=== PATIENT | female | born 1975 | race Caucasian/White ===

== ENCOUNTER 2020-04-19 17:28 | Emergency (ER) | payer OTHER, SELFPAY ==
[2020-04-19 17:44] VITALS: BP 142/80; PULSE 84; RESP 16; TEMP 36.1; O2SAT 96
--- NOTE | 2020-04-19 17:44 | ED.GENADULT ---
HPI - General Adult General Chief complaint: Skin/Abscess/Foreign Body Stated complaint: Rash Time Seen by Provider: 04/19/20 17:52 Source: patient and RN notes reviewed Mode of arrival: ambulatory Limitations: no limitations History of Present Illness HPI narrative: 44-year-old female presents with complaints of red, blister, raised, mild itching diffused rash for the past 1.5 days. Benadryl this morning between 07:00/08:00 with little to no relief. Namita believes she could have eating something with gluten in it. She changed her fabric softener (liquid) to Gain over a month ago otherwise no other new changes in personal hygiene products or laundry detergent. No new foods or medications. No swelling, burning, bleeding, or drainage. Denies fever, chills, headaches, weakness, fatigue, myalgia, facial swelling, or tongue swelling. Denies chest pain or dyspnea. Tolerating po intake well. The patient reports she have not been diagnosed with COVID-19. The patient reports she is not waiting for the results of a COVID-19 lab test. The patient reports she do not have fever, chills, or weakness. The patient reports she do not have a new or worsening cough or shortness of breath. Denies chest pain. The patient reports she do not have any rhinorrhea, congestion, sore throat, loss of taste, nausea, vomiting, abdominal pain, and diarrhea. Denies recent traveling. Denies concerns for COVID-19 or exposures been home with limited outdoor exposure except for essential household needs and return home. At this time, patient is not suspected of having COVID-19. Some parts of this dictation were generated by voice recognition software and may contain typographical and/or grammatical inaccuracies. Related Data Home Medications Medication Instructions Recorded Confirmed Prilosec 04/19/20 Allergies Allergy/AdvReac Type Severity Reaction Status Date / Time sulfamethoxazole Allergy Severe Anaphylactic Unverified 12/19/18 15:45 Shock trimethoprim Allergy Severe Anaphylactic Unverified 12/19/18 15:45 Shock Review of Systems Review of Systems: Narrative: CONSTITUTIONAL: Denies fever, chills, sweats. EYES: Denies visual changes, redness, discharge. ENT: Denies rhinorrhea, congestion, sore throat, otalgia. CARDIOVASCULAR: Denies chest pain, palpitations, edema. RESPIRATORY: Denies dyspnea, wheezing, cough. GASTROINTESTINAL: Denies abdominal pain, nausea, vomiting, diarrhea. GENITOURINARY: Denies dysuria, hematuria, abnormal discharge SKIN: Complaints of red, blister, raised, mild itching diffused rash. Denies drainage. MUSCULOSKELETAL: Denies acute back pain, joint pain, or myalgia. NEUROLOGIC: Denies numbness or focal weakness. PSYCHIATRIC: Denies anxiety or depression. All other systems reviewed & are unremarkable except as noted in HPI and below. [facility] Past Medical History Medical History (Updated 04/19/20 @ 18:27 by CATINA Mcintyre) Celiac disease delivery delivered History of gastroesophageal reflux (GERD) Surgical History Surgical History (Updated 04/19/20 @ 18:27 by CATINA Mcintyre) H/O section X1 History of cholecystectomy History of left knee surgery Family History Family History (Updated 04/19/20 @ 18:28 by CATINA Mcintyre) Father Alive and well Mother Diabetes mellitus Social History Social History (Updated 04/19/20 @ 18:29 by CATINA Mcintyre) Smoking packs per day: 0.5 Smoking cigarettes per day: 10.0 Years smoked: 20 Smoking pack-years: 10.00 Smoking status: Current every day smoker Tobacco type: cigarettes Second hand tobacco smoke exposure: No Alcohol intake: current Substance use: never Living arrangements: with family Additional occupation/education comments: Disable Gender identity (if verbalized by the patient): Female Sexual Orientation (if Verbalized by the Patient): Straight or Heterosexual Comm
== END 2020-04-19 18:16 | disposition home or self-care (01) ==
PROVIDERS: Emergency Provider Nurse Practitioner Family; PCP Registered Nurse
DX: L50.9 Urticaria, unspecified (principal); F17.210 Nicotine dependence, cigarettes, uncomplicated; K21.9 Gastro-esophageal reflux disease without esophagitis; K90.0 Celiac disease
CPT/HCPCS: 99213; G0463

== ENCOUNTER 2021-01-06 17:47 | Emergency (ER) | payer OTHER, SELFPAY ==
--- NOTE | 2021-01-06 17:55 | ED.FEMALEGU ---
HPI - Female Genitourinary General Chief complaint: Urogenital-Female Stated complaint: UTI Time Seen by Provider: 01/06/21 18:04 Source: patient and RN notes reviewed Mode of arrival: ambulatory Limitations: no limitations History of Present Illness HPI Narrative: 45-year-old female presents concern for possible urinary tract infection reports this past week she had left lower abdominal pain that has since resolved. Since Wednesday she has had urinary frequency, urgency, suprapubic pressure. She denies dysuria, hematuria, nausea, vomiting, flank pain, fever. Denies abnormal vaginal discharge or bleeding. MD elicited complaint: UTI Related Data Allergies Allergy/AdvReac Type Severity Reaction Status Date / Time sulfamethoxazole Allergy Severe Anaphylactic Unverified 12/19/18 15:45 Shock trimethoprim Allergy Severe Anaphylactic Unverified 12/19/18 15:45 Shock Review of Systems Review of Systems: Narrative: CONSTITUTIONAL: Denies malaise, chills, sweats, or fever. CARDIOVASCULAR: Denies chest pain, palpitations, or edema. RESPIRATORY: Denies cough or dyspnea. GASTROINTESTINAL: Denies abdominal pain, nausea, vomiting, diarrhea GENITOURINARY: Denies dysuria or hematuria. SKIN: Reports urine frequency, urgency, suprapubic pressure denies rash or itching. MUSCULOSKELETAL: Denies back pain or myalgia. NEUROLOGIC: Denies headache. All systems reviewed & are unremarkable except as noted in HPI and below PMFSH Past Medical History Medical History (Updated 01/06/21 @ 18:13 by Sissy Gary NP) Celiac disease delivery delivered History of gastroesophageal reflux (GERD) Surgical History Surgical History (Updated 04/19/20 @ 18:27 by CATINA Mcintyre) H/O section X1 History of cholecystectomy History of left knee surgery Family History Family History (Updated 04/19/20 @ 18:28 by CATINA Mcintyre) Father Alive and well Mother Diabetes mellitus Social History Social History (Updated 04/19/20 @ 18:29 by CATINA Mcintyre) Smoking packs per day: 0.5 Smoking cigarettes per day: 10.0 Years smoked: 20 Smoking pack-years: 10.00 Smoking status: Current every day smoker Tobacco type: cigarettes Second hand tobacco smoke exposure: No Alcohol intake: current Substance use: never Additional occupation/education comments: Disable Gender identity (if verbalized by the patient): Female Comments At time of signature, agree with nursing past medical, surgical, social and family history. There is no relevant family history pertinent to the presenting complaint Exam Narrative: Exam Narrative: GENERAL: Well-appearing, well-nourished, and in no acute distress. HEAD: Normocephalic. EYES: PERRLA, conjunctivae clear. NECK: Supple. No lymphadenopathy CHEST: Clear to auscultation. No respiratory distress. HEART: Regular rate and rhythm. ABDOMEN: Soft, nontender upon palpation, nondistended, normal active bowel sounds, no palpable or pulsatile masses, no guarding. No CVA tenderness SKIN: Warm, dry, no rash. NEURO: Alert and oriented x3. PSYCH: Normal mood and affect Course Course Emergency Course: Patient is aware of diagnosis, understands and agrees to treatment plan. Anticipatory guidance given. Patient agrees to follow-up as directed and is aware of reasons to seek care at the emergency department. Portions of this record may have been created with voice recognition software Vital Signs Vital signs: Vital Signs Temperature 98.4 F 01/06/21 18:05 Pulse Rate 101 H 01/06/21 18:05 Respiratory Rate 16 01/06/21 18:05 Blood Pressure 160/82 H 01/06/21 18:05 Pulse Oximetry 97 01/06/21 18:05 Temperature 98.4 F 01/06/21 18:05 Pulse Rate 101 H 01/06/21 18:05 Respiratory Rate 16 01/06/21 18:05 Blood Pressure 160/82 H 01/06/21 18:05 Pulse Oximetry 97 01/06/21 18:05 Reviewed. MDM - Female Genitourinary MDM Narrative Medic
[2021-01-06 18:05] VITALS: BP 160/82; PULSE 101; RESP 16; TEMP 36.9; O2SAT 97
== END 2021-01-06 18:20 | disposition home or self-care (01) ==
PROVIDERS: Emergency Provider Nurse Practitioner; PCP Registered Nurse
DX: R35.0 Frequency of micturition (principal); R39.15 Urgency of urination; R10.30 Lower abdominal pain, unspecified; K21.9 Gastro-esophageal reflux disease without esophagitis; K90.0 Celiac disease; F17.210 Nicotine dependence, cigarettes, uncomplicated
CPT/HCPCS: 81003; 87086; 87088; 99213; G0463

== ENCOUNTER 2021-05-08 13:02 | Emergency (ER) | payer OTHER, SELFPAY ==
[2021-05-08 13:11] VITALS: BP 125/84; PULSE 103; RESP 18; TEMP 36.7; O2SAT 98
--- NOTE | 2021-05-08 13:21 | ED.URI ---
HPI - URI/Sore Throat General Chief Complaint: Upper Respiratory Infection Stated Complaint: sore throat History of Present Illness HPI Narrative: This is a 45-year-old female comes in complaining of a sore throat, being hoarse, coughing. Patient denies any nausea vomiting and/or diarrhea. Patient states that she is taking antihistamines and some cough medicine but she does not seem to think that is working patient states that she feels slightly short of breath Related Data Home Medications Medication Instructions Recorded Confirmed Prilosec OTC 05/08/21 Allergies Allergy/AdvReac Type Severity Reaction Status Date / Time sulfamethoxazole Allergy Severe Anaphylactic Unverified 12/19/18 15:45 Shock trimethoprim Allergy Severe Anaphylactic Unverified 12/19/18 15:45 Shock Review of Systems Review of Systems: ent: Nasal secretions, sore throat, coughing, All systems reviewed & are unremarkable except as noted in HPI and below PMFSH Past Medical History Medical History (Updated 05/08/21 @ 13:45 by La London NP) Celiac disease delivery delivered History of gastroesophageal reflux (GERD) Surgical History Surgical History (Updated 04/19/20 @ 18:27 by CATINA Mcintyre) H/O section X1 History of cholecystectomy History of left knee surgery Family History Family History (Updated 04/19/20 @ 18:28 by CATINA Mcintyre) Father Alive and well Mother Diabetes mellitus Social History Social History (Updated 04/19/20 @ 18:29 by CATINA Mcintyre) Smoking packs per day: 0.5 Smoking cigarettes per day: 10.0 Years smoked: 20 Smoking pack-years: 10.00 Smoking status: Current every day smoker Tobacco type: cigarettes Second hand tobacco smoke exposure: No Alcohol intake: current Substance use: never Additional occupation/education comments: Disable Gender identity (if verbalized by the patient): Female Sexual Orientation (if Verbalized by the Patient): Straight or Heterosexual Comments At time as signature, I have reviewed and agree with nursing past medical, social, surgical and family history. Please see nursing chart for further information. There is no relevant family history pertinent to the presenting complaint. Exam Narrative: GENERAL:Well-appearing, and in no acute distress. HEAD:Normocephalic, atraumatic. EYES: PERRLA and EOMI. ENT: Nares clear, Mucous membranes moist. Pharyngeal erythema due to nasal drainage left TM bulging with erythema NECK: Supple. CHEST: Clear to auscultation. No respiratory distress. HEART: Regular rate and rhythm. Normal peripheral pulses. ABDOMEN: Soft, nontender, nondistended, normal active bowel sounds. EXTREMITIES: Normal range of motion. No edema. SKIN: Warm, dry, no rash. NEURO: No focal deficits. Alert and oriented x3. Patient complains of feeling like it is harder for her to breathe when she coughs or goes into a coughing spell Course CIRCULATION CLERK/PA Physician Supervision Pneumonia, Allergic Rhinitis, Asthma/COPD exacerbation, Upper respiratory cough syndrome, Pharyngitis, Sinusitis, Bronchitis, Influenza Vital Signs Vital signs: Vital Signs Temperature 98.0 F 05/08/21 13:11 Pulse Rate 103 H 05/08/21 13:11 Respiratory Rate 18 05/08/21 13:11 Blood Pressure 125/84 05/08/21 13:11 Pulse Oximetry 98 05/08/21 13:11 Temperature 98.0 F 05/08/21 13:11 Pulse Rate 103 H 05/08/21 13:11 Respiratory Rate 18 05/08/21 13:11 Blood Pressure 125/84 05/08/21 13:11 Pulse Oximetry 98 05/08/21 13:11 MDM - URI/Sore Throat Differential Diagnosis Differential diagnosis: Likely upper respiratory infection, croup, otitis media, sinusitis, viral infection, bronchitis, influenza and pharyngitis Lab Data Labs: Strep Screen Presumptive Negative *(Reference Range: Negative)* Discharge Plan Discharge Clinic
== END 2021-05-08 14:20 | disposition home or self-care (01) ==
PROVIDERS: Emergency Provider Nurse Practitioner Family; PCP Registered Nurse
DX: H66.90 Otitis media, unspecified, unspecified ear (principal); J02.9 Acute pharyngitis, unspecified; F17.210 Nicotine dependence, cigarettes, uncomplicated
CPT/HCPCS: 87081; 87880; 99213; G0463

== ENCOUNTER 2024-07-31 19:05 | Emergency (ER) | payer OTHER, SELFPAY ==
[2024-07-31 19:21] VITALS: BP 130/78; PULSE 94; RESP 16; TEMP 36.9; O2SAT 97
--- NOTE | 2024-07-31 19:57 | ED.URI ---
HPI - URI/Sore Throat General Chief Complaint: Upper Respiratory Infection Stated Complaint: Bodyaches/Chills/Sore Throat Time Seen by Provider: 07/31/24 19:57 Source: patient, RN notes reviewed and old records reviewed Mode of arrival: ambulatory Limitations: no limitations History of Present Illness HPI Narrative: Patient presents with complaints of 8-10 days of body aches, congestion. She reports that congestion initially began in her sinuses, and she continues to have some sinus pain and congestion. But then she feels as though it has begun to work its way into her chest. She reports that she has a deep congested cough, cough is productive. She denies any fevers. She does report some chills and sweats. She has been taking [id number] medication for her symptoms with minimal relief. She denies any injury or trauma. She voices no other concerns or complaints today. Related Data Home Medications ?Medication ?Instructions ?Recorded ?Confirmed ?Last Taken ?Type Prilosec OTC 05/08/21 Unknown History Allergies Allergy/AdvReac Type Severity Reaction Status Date / Time sulfamethoxazole Allergy Severe Anaphylactic Unverified 12/19/18 15:45 Shock trimethoprim Allergy Severe Anaphylactic Unverified 12/19/18 15:45 Shock Review of Systems Review of Systems: All systems reviewed & are unremarkable except as noted in HPI and below Constitutional: Constitutional: Reports no additional constitutional complaints ENT: Reports system reviewed and no additional complaints, except as documented, Reports nasal congestion, Reports nasal discharge, Reports sinus pain, Reports sinus pressure and Reports sore throat Cardiovascular: Cardiovascular: Reports no additional cardiovascular complaints Respiratory: Respiratory: Reports no additional respiratory complaints, Reports chest congestion, Reports cough and Reports excessive phlegm production Gastrointestinal: Gastrointestinal: Reports no additional gastrointestinal complaints [facility] Past Medical History Medical History History of gastroesophageal reflux (GERD) delivery delivered Celiac disease Surgical History Surgical History History of left knee surgery History of cholecystectomy H/O section X1 Family History Family History Father Alive and well Mother Diabetes mellitus Social History Social History Smoking packs per day: 0.5 Smoking cigarettes per day: 10.0 Years smoked: 20 Smoking pack-years: 10.00 Smoking status: Current every day smoker Tobacco type: cigarettes Second hand tobacco smoke exposure: No Alcohol intake: current Substance use: never Living arrangements: with family Additional occupation/education comments: Disable Gender identity (if verbalized by the patient): Female Sexual Orientation (if Verbalized by the Patient): Straight or Heterosexual Comments At the time of my signature, I reviewed and agree with the nursing past medical, surgical, social, and family history. There is no relevant family history pertinent to the patient complaint. Exam Const: General: cooperative, no acute distress, alert, awake and tired appearing Orientation/consciousness: oriented to person, oriented to place and oriented to time HENMT: Head: normal to inspection Face/Nose/Sinus: sinus tenderness Mouth: Yes moist mucous membranes Throat: posterior oropharynx abnormal erythema Resp: Effort & Inspection: normal respiratory effort and able to speak in complete sentences Auscultation: clear to auscultation bilaterally, no crackles, no rales, no rhonchi and no wheezes Cardio: Palpation: normal PMI Rate: regular rate Rhythm: regular rhythm Heart sounds: S1 normal heart sound present and S2 normal heart sound present Neuro: General: oriented to person, oriented to place and oriented to time Cranial nerves: Yes CN's II-XII intact bilaterally Psych: Appearance: grossly normal Thought process: Normal thought process present Insight: Good insight present (Psych) Judgement: Good judgement present (Psych) Course Course Level of Care: Express Care Visit Vital Signs Vital signs: Vital Signs Temperature 98.4 F 07/31/24 19:21 Pulse Rate 94 07/31/24 19:21 Respiratory Rate 16 07/31/24 19:21 Blood Pressure 130/78 07/31/24 19:21 Pulse Oximetry 97 07/31/24 19:21 Oxygen Delivery Room Air 07/31/24 19:21 Temperature 98.4 F 07/31/24 19:21 Pulse Rate 94 07/31/24 19:21 Respiratory Rate 16 07/31/24 19:21 Blood Pressure 130/78 07/31/24 19:21 Pulse Oximetry 97 07/31/24 19:21 Oxygen Delivery Room Air 07/31/24 19:21 Reviewed Discharge Plan Discharge Clinical Impression: Sinusitis Patient Disposition: Home, Self-Care Condition: Stable Instructions: Antibiotic Form, Sinusitis (ED) Additional Instructions: Take all medications as prescribed. Follow with primary care provider. Emergency department for new or worse symptoms Patient Language: Lithuanian Prescriptions: New doxycycline hyclate 100 mg capsule 100 mg PO BID Qty: 20 0RF prednisone 50 mg tablet 50 mg PO DAILY Qty: 5 0RF albuterol sulfate [Ventolin HFA] 90 mcg/actuation HFA aerosol inhaler 2 puff inhalation QID PRN (Reason: shortness of breath or wheezing) Qty: 8.5 0RF prednisone 50 mg tablet 50 mg PO DAILY Qty: 5 0RF doxycycline hyclate 100 mg tablet 100 mg PO BID Qty: 20 0RF No Action Prilosec OTC amoxicillin 500 mg capsule 500 mg PO Q12H 10 Days Qty: 20 0RF cetirizine [Zyrtec] 10 mg tablet 10 mg PO DAILY PRN (Reason: allergy symptoms) Qty: 30 0RF albuterol sulfate 90 mcg/actuation HFA aerosol inhaler 2 puff inhalation QID PRN (Reason: shortness of breath or wheezing) Qty: 8.5 0RF Follow-up/Referrals: Iggy,RC Warner [Primary Care Provider] - 2 Weeks Time of Disposition: 20:06
== END 2024-07-31 20:11 | disposition home or self-care (01) ==
PROVIDERS: Emergency Provider Nurse Practitioner Family; PCP Registered Nurse
DX: J32.9 Chronic sinusitis, unspecified (principal); F17.210 Nicotine dependence, cigarettes, uncomplicated; K21.9 Gastro-esophageal reflux disease without esophagitis; K90.0 Celiac disease
CPT/HCPCS: 99213; G0463

== ENCOUNTER 2025-03-16 16:47 | Emergency (ER) | payer OTHER, SELFPAY ==
--- NOTE | ~2025-03-16 | XR_ITS ---
EXAMINATION: XR foot RT min 3V DATE: 03/16/2025 17:36 INDICATION: Right toe pain, erythema and swelling TECHNIQUE: Dorsoplantar, oblique and lateral views of the right foot were obtained. COMPARISON: None. FINDINGS: Bone alignment is normal. No fracture. Minimal to mild polyarticular osteoarthritis at the first meta tarsophalangeal and a few tarsometatarsal and interphalangeal joints. No erosions to suggest inflamma tory arthritis. Moderate-sized plantar calcaneal spur. Soft tissue swelling over the dorsum of the fo refoot. IMPRESSION: 1. 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 No acute osseous abnormality . Reviewed, dictated and finalized at location A. IMPRESSION: 1. 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 No acu te osseous abnormality.
[2025-03-16 17:01] VITALS: BP 147/89; PULSE 100; RESP 16; TEMP 36.9; O2SAT 97
--- NOTE | 2025-03-16 17:07 | ED_ITS ---
HPI - Back Pain/Injury General Chief Complaint: Back Pain/Injury Stated Complaint: R Swollen Foot/Extreme Lower Back Pain Time Seen by Provider: 03/16/25 16:50 Source: patient Mode of arrival: ambulatory Limitations: no limitations History of Present Illness HPI Narrative: Patient is a 49-year-old female who presents with right foot pain and swelling along with with low back pain radiating to left buttock for 3 days. Patient denies any history of sciatica or gout. Patient has been taking Tylenol, ibuprofen and has been is a Flexeril with no relief. Patient denies any urinary symptoms, loss of bowel or bladder, numbness, tingling or weakness to extremities. Patient appears very uncomfortable in states she is not even able to wipe herself due to pain. States even the blanket touching her foot is extremely painful. Patient has no history of diabetes. Related Data Home Medications ?Medication ?Instructions ?Recorded ?Confirmed ?Last Taken ?Type Prilosec OTC 05/08/21 Unknown History Allergies Allergy/AdvReac Type Severity Reaction Status Date / Time sulfamethoxazole Allergy Severe Anaphylactic Verified 03/16/25 18:34 Shock trimethoprim Allergy Severe Anaphylactic Verified 03/16/25 18:34 Shock Review of Systems Review of Systems: All systems reviewed & are unremarkable except as noted in HPI and below Constitutional: Constitutional: Denies body ache(s), Denies chills, Denies fatigue, Denies fever(s), Denies headache(s), Denies malaise and Denies weakness Eyes: Eyes: Denies blurry vision, Denies irritation and Denies loss of vision ENT: Denies otalgia, Denies headache(s), Denies nasal discharge, Denies sinus pain and Denies sore throat Cardiovascular: Cardiovascular: Denies chest pain, Denies irregular heart rhythm and Denies dyspnea Respiratory: Respiratory: Denies dyspnea Gastrointestinal: Gastrointestinal: Denies abdominal pain, Denies melena, Denies hematochezia, Denies diarrhea, Denies nausea and Denies vomiting Musculoskeletal: Musculoskeletal: Reports back pain, Denies myalgias, Reports arthralgias and Reports joint swelling Integumentary/Breasts: Skin/Breast: Denies pruritus and Denies rash Neurologic: Denies headache(s), Denies loss of vision and Denies weakness Psychiatric: Psychiatric: Reports no additional psychiatric complaints Endocrine: Endocrine: Denies fatigue [facility] Past Medical History Medical History History of gastroesophageal reflux (GERD) delivery delivered Celiac disease Surgical History Surgical History History of left knee surgery History of cholecystectomy H/O section X1 Family History Family History Father Alive and well Mother Diabetes mellitus Social History Social History Smoking packs per day: 0.5 Smoking cigarettes per day: 10.0 Years smoked: 20 Smoking pack-years: 10.00 Smoking status: Current every day smoker Tobacco type: cigarettes Second hand tobacco smoke exposure: No Alcohol intake: current Substance use: never Living arrangements: with family Additional occupation/education comments: Disable Gender identity (if verbalized by the patient): Female Sexual Orientation (if Verbalized by the Patient): Straight or Heterosexual Comments At time of signature, agree with nursing past medical, surgical, social and family history. There is no relevant family history pertinent to the presenting complaint. Exam Const: General: cooperative, uncomfortable, well nourished and obese Nutritional Appearance: well nourished Orientation/consciousness: patient oriented x3 Limitations: no limitations HENMT: Head: normal to inspection, normocephalic and atraumatic Ears: hearing grossly normal bilaterally and external ears normal Face/Nose/Sinus: Normal external nose present, normal facial exam and face symmetric Face and sinus: normal facial exam and face symmetric Mouth: Yes lip normal Eyes: General: appearance normal, both eyes and all related structures Alignment and Position: alignment normal and position normal Periorbital: periorbital findings normal Eyelids: eyelids normal Pupils: Equal, round and reactive pupils present EOM: EOMs intact bilaterally Neck: Neck: normal visual inspection, full ROM and supple Chest: Chest palpation & inspection: normal inspection of the chest Resp: Effort & Inspection: normal respiratory effort and able to speak in complete sentences Auscultation: clear to auscultation bilaterally Cardio: Rate: regular rate Rhythm: regular rhythm Heart sounds: S1 normal heart sound present and S2 normal heart sound present GI: Inspection: normal to inspection Back/Spine/Pelvis: Thoracic/Lumbar Spine: pain with thoraco-lumbar ROM, paraspinal muscle tenderness on the left in the mid lumbar and in the lower lumbar, No thoracic spinal tenderness and No lumbar spinal tenderness Skin: General skin exam: normal color and no rashes or lesions noted Neuro: General: patient oriented x3 and moves all extremities Cranial nerves: Yes Equal, round and reactive pupils present Speech: normal speech Gait exam (Neuro): Normal gait present Extrem: General: normal to inspection, full ROM and no edema Right lower extremity: ankle Details: normal to inspection; no tenderness and achilles tendon exam normal and foot Details: normal capillary refill, tenderness Location: of the great toe Location: at the MTP joint, abnormal ROM of toe Details: pain with active ROM Location: of the great toe, warmth (and eythema) Location: of the great toe Location: at the MTP joint and vascular exam Details: dorsalis pedis pulse present and normal capillary refill Psych: Appearance: grossly normal and well kempt Mental Status: mental status grossly normal Speech and movement: Normal speech and movement present Affect: normal affect Attitude: cooperative Thought process: Normal thought process present Course Course Emergency Course: Patient being transferred to [facility] for further workup and evaluation including labs, possible imaging and pain management Portions of this record may have been created with voice recognition software Level of Care: Express Care Visit Vital Signs Vital signs: Vital Signs Temperature 36.9 C 03/16/25 17:01 Pulse Rate 100 03/16/25 17:01 Respiratory Rate 16 03/16/25 17:01 Blood Pressure 147/89 H 03/16/25 17:01 Pulse Oximetry 97 03/16/25 17:01 Temperature 36.9 C 03/16/25 17:01 Pulse Rate 100 03/16/25 17:01 Respiratory Rate 16 03/16/25 17:01 Blood Pressure 147/89 H 03/16/25 17:01 Pulse Oximetry 97 03/16/25 17:01 Reviewed Transfer Transfered to: [place] Transportation: Other (Private auto) Transfer rationale: Patient being transferred to [facility] for further workup and evaluation including labs, possible imaging and pain management Accepting physician: Yessenia TATUM MDM - Back Pain/Injury MDM Narrative Medical decision making narrative: Patient being transferred to [facility] for further workup and evaluation including labs, possible imaging and pain management Differential Diagnosis Differential diagnosis: Likely lumbar radiculopathy, sciatica, strain of lumbar region and other (Gout, arthritis, cellulitis) Medical Records Attestation: I reviewed the patient's medical records. Discharge Plan Discharge Clinical Impression: Acute pain of right foot Sciatica Qualifiers: Laterality: left Qualified Code(s): M54.32 - Sciatica, left side Patient Disposition: Acute Care Hospital Condition: Stable Patient Language: Armenian Prescriptions: No Action Prilosec OTC cetirizine [Zyrtec] 10 mg tablet 10 mg PO DAILY PRN (Reason: allergy symptoms) Qty: 30 0RF Follow-up/Referrals: PHYSICIAN,GROUP LEADER SEMICONDUCTOR TESTING [Primary Care Provider] -
== END 2025-03-16 18:16 | disposition short-term general hospital (02) ==
LOC: EXPCOLL 16:50
PROVIDERS: Emergency Provider Nurse Practitioner Family
DX: M79.671 Pain in right foot (principal); M54.32 Sciatica, left side; F17.210 Nicotine dependence, cigarettes, uncomplicated; K90.0 Celiac disease; K21.9 Gastro-esophageal reflux disease without esophagitis
CPT/HCPCS: 73630; 99213; G0463

== ENCOUNTER 2025-03-16 18:33 | Emergency (ER) | payer OTHER, SELFPAY ==
--- NOTE | ~2025-03-16 | CT_ITS ---
EXAMINATION: CT lumbar spine wo con DATE: 03/16/2025 19:21 INDICATION: Bilateral low back pain. Right foot numbness. TECHNIQUE: Computed tomography (CT) of the lumbar spine was performed without intravenous contrast. A utomated exposure control and iterative reconstruction technique were employed. The dose-length produ ct was 1300.23 mGy-cm. COMPARISON: MRI dated 01/11/2008 FINDINGS: 15 degrees lumbar dextroscoliosis. Chronic 2 mm retrolisthesis L1 on L2. Chronic mild likely physiolo gic anterior wedging at T11 and T12. Remaining vertebral body heights are normal. No fracture. Modera te disc height loss at T9-T10 and with vacuum phenomena at T11-T12 and T12-L1. Mild disc height loss at T10-T11, L4-L5 and with left-sided predominance at L1-L2 through L3-L4. No central canal stenosis. Moderate bilateral neural foraminal stenosis at L3-L4, L4-L5 and L5-S1 as well as in the visualized lower thoracic spine with mild neural foraminal stenosis bilaterally at L1-L2 and L2-L3. Mild neural foraminal stenosis bilaterally at T10-T11, L1-L2 and on the left at L2-L3 and L3-L4. Cholecystectomy clips the gallbladder fossa. Paravertebral soft tissues are unremarkable. Moderate bilateral sacroili ac osteoarthritis. IMPRESSION: 1. 15 degrees lumbar scoliosis with mild lumbar and moderate lower thoracic spondylosis. No acute oss eous abnormality. Reviewed, dictated and finalized at location A. IMPRESSION: 1. 15 degrees lumbar scoliosis with mild lumbar and moderate lower thoracic spo ndylosis. No acute osseous abnormality.
--- OUTSIDE RECORDS SUMMARY | 2025-03-16 18:35 | XMS_ITS | Clinical Summary ---
Author Organization [facility] [employer] Address [address] [place] [address] Care Team Providers Care Flagsetter Name Role Phone Timmy Parkinson CAR PICK UP DRIVER-MOTION PICTURE SET WORKER Primary Care Pro vider Source Comments [facility] [employer],non-owned Affiliates and Associated Physician Practices is amultiple site organization consisting of ambulatory clinics and hospital sitesin [place], [place], [place] and [place]. This disclosure is being madepursuant to the Care Everywhere program and may not contain all information available regarding this patient. Last updated 18.[facility] [employer] Allergies Active Allergy Reactions Criticality Noted Date Comments Sulfamethoxazole W-Trimethoprim Anaphylaxis High Medications * Be aware that medications may not be up to date on this document. Alwaysverify current medications with the patient. omeprazole EC (PRILOSEC OTC) 20 MG tablet Take 20 mg by mouth DAILY. 07/13/2017 Active hydrocortisone (HYTONE) 2.5 % cream SUSAN TO ITCHY SPOTS ON FACE BID FOR NO MORE THAN 2 WEEKS Q MONTH 1 03/31/2018 Active betamethasone dipropionate augmented (DIPROLENE AF) 0.05 % creamIndications:D ermatitis herpetiformis Apply to itchy bumps on arms twice daily as needed. 50 g 3 05/25/2018 Active desoximetasone (TOPICORT) 0.25 % ointment Apply to rash twice daily as needed. 30 days supply. 60 g 3 06/02/2018 Active triamcinolone acetonide (KENALOG) 0.1 % creamIndications:D ermatitis herpetiformis Apply to itchy bumps on arms twice daily as needed. 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 Family History Medical History Relation Name Comments Eczema Father Renal Disease Mother CVA Neg Hx Cancer - Breast Neg Hx Cancer - Other Neg Hx Cancer - Skin, Melanoma Neg Hx Cancer - Skin, Non Melanoma Neg Hx Hemophilia Neg Hx Psoriasis Neg Hx Relation Name Status Comments Father Mother Social History Tobacco Use Types Packs/Day Years Used Date Smoking Tobacco: Every Day Smokeless Tobacco: Never Alcohol Use Standard Drinks/Week Comments Yes 0 (1 standard drink = 0.6 oz pur e alcohol) Comments Unknown Sex and Gender Information Value Date Recorded Sex Assigned at Not on file Legal 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 Gender Identity Not on file Sexual Orientation Not on file Plan of Treatment Health Maintenance Due Date Last Done Comments COLOGUARD (AGES 45-75) - COL ON CA SCREENING 1974 COLON MONITORING 1974 COLONOSCOPY - COLON CA SCREENING 1974 CT COLONOGRAPHY - COLON CA SCREENING 1974 Colorectal Cancer Screening 1974 FIT - COLON CA SCREENING 1974 FLEX SIG - COLON CA SCREENING 1974 LIPID TESTING 1974 MAMMOGRAM 1974 HIV SCREENING 1989 HEPATITIS C SCREENING 05/13/1992 DTAP/TDAP/TD VACCINES (1 - Tdap) 1993 HEPATITIS B VACCINE (1 of 3 - 19+ 3-dose series) 1993 COVID-19 VACCINE (1 - 2023-2 5 season) 2024 PNEUMOCOCCAL VACCINE 50+ (1 of 1 - PCV) 2024 ZOSTER VACCINE (1 of 2) 2024 DEPRESSION SCREENING 08/23/2024 INFLUENZA VACCINE (#1) 2025 HIB VACCINE Aged Out No longer eligi ble based on patient's age to complete this topic HPV VACCINE Aged Out No longer eligi ble based on patient's age to complete this topic MENINGOCOCCAL (Group B) VACC INE SHARED DECISION-MAKING Aged Out No longer eligibl e based on patient's age to complete this topic MENINGOCOCCAL GROUPS A/C/Y/W VACCINE Aged Out No longer eligible b ased on patient's age to complete this topic Insurance [facility] Care Teams Flagsetter Relationship Specialty Start Date End Date Timmy Parkinson APRN-GREG [address] [place] [phone] PCP - General 07/13/17
--- OUTSIDE RECORDS SUMMARY | 2025-03-16 18:35 | XMS_ITS | Encounter Summary ---
Author Organization [facility] Address [address] [place] [address] Care Team Providers Care Drum Attendant Name Role Phone Timmy Parkinson INSTALLER-CLOTH BOOKER Primary Care Pro vider Reason for Visit * Reason Onset Date Comments Refill Request 02/15/2019 Encounter Details Date Type Department Care Team (Late st Contact Info) Description 02/15/2019 Refill [facility] General Dermatology [address] [place] [id number] John Swenson MD [address] [place] [phone] Refill Request Social History Tobacco Use Types Packs/Day Years Used Date Smoking Tobacco: Every Day Smokeless Tobacco: Never Alcohol Use Standard Drinks/Week Comments Yes 0 (1 standard drink = 0.6 oz pur e alcohol) Comments Unknown Sex and Gender Information Value Date Recorded Sex Assigned at Not on file Legal 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 Her armsare breaking out with blisters again. Also would if steriod pills help her? Please call pt to advise/discuss. Ines Chacon Senior Patient Ultrasound Sonographer Department of Dermatology, Mohs Surgery and Cutaneous Oncology [facility] Dermatology [facility] documented in this encounter Plan of Treatment Not on file documented as of this encounter Visit Diagnoses Diagnosis Dermatitis herpetiformis documented in this encounter Care Teams Drum Attendant Relationship Specialty Start Date End Date Timmy Parkinson APRN-GREG [address] [place] [phone] PCP - General 07/13/17 documented as of this encounter
[2025-03-16 18:42] VITALS: BP 181/155; PULSE 109; RESP 18; TEMP 37; O2SAT 97
--- NOTE | 2025-03-16 18:49 | ED_ITS ---
HPI - Back Pain/Injury General Chief Complaint: Back Pain/Injury <Keiry Jeong APRN - Last Filed: 03/16/25 18:51> Stated Complaint: Back pain <Keiry Jeong APRN - Last Filed: 03/16/25 18:51> Time Seen by Provider: 03/16/25 18:45 <Keiry Jeong APRN - Last Filed: 03/16/25 18:51> Focused HPI: Patient is a 49-year-old female who presents to the ER with bilateral lower back pain that radiates down legs, intermittent right foot pain, and intermittent right foot numbness/tingling. She reports her symptoms started 4 days ago and have progressively gotten worse. Patient denies any urinary symptoms. She endorses a history cholecystectomy, C-sections, left knee replacement, and celiac disease. Patient denies any calf pain, recent fevers, or headache. GENERAL: ill-appearing, obese, and in acute distress d/t pain. HEAD: Normocephalic, atraumatic. CHEST: Clear to auscultation. ?No respiratory distress. HEART: Tachycardia, regular rate NEURO: ?Alert and oriented x3. Cranial nerves intact. Patient screened in triage and initial orders placed.? ?Additional care and disposition to be based upon?diagnostic testing and treatment. <Keiry Jeong APRN - Last Filed: 03/16/25 18:51> Source: patient and family <Esther Mesa MD - Last Filed: 03/18/25 08:09> Mode of arrival: ambulatory <Esther Mesa MD - Last Filed: 03/18/25 08:09> Limitations: no limitations <Esther Mesa MD - Last Filed: 03/18/25 08:09> History of Present Illness HPI Narrative: Agree with the above with the following additions/corrections: Patient states that her back pain radiates into her left buttock and proximal upper leg but not into the thigh or along lateral aspect and does not continue to the knee or foot. No trauma/falls. Her symptoms started 03/12. Symptoms have seemed intermittent. She has also been having right foot pain and notes hyperalgesia with touch. She has been trying Flexeril couple 1 tablet of baclofen, and 600 mg of ibuprofen in addition to massage /muscle rub with heat. No history of MRSA. Allergic to Bactrim. Denies any urinary symptoms. No history of diabetes mellitus. Does not drink alcohol. No incontinence of bowel or bladder. Denies paresthesias except parts of the right foot which is red. No saddle anesthesia. Denies any IV drug use. Not on anticoagulation. No fevers or chills. No syncope or abdominal pain. Confirms she has a PCP Iggy. <Esther Mesa MD - Last Filed: 03/18/25 08:09> Related Data Home Medications: Home Medications ?Medication ?Instructions ?Recorded ?Confirmed ?Last Taken ?Type Prilosec OTC 05/08/21 Unknown History <Keiry Jeong APRN - Last Filed: 03/16/25 18:51> Allergies/Adverse Reactions: Allergies Allergy/AdvReac Type Severity Reaction Status Date / Time sulfamethoxazole Allergy Severe Anaphylactic Verified 03/16/25 18:46 Shock trimethoprim Allergy Severe Anaphylactic Verified 03/16/25 18:46 Shock <Keiry Jeong APRN - Last Filed: 03/16/25 18:51> PMFSH Past Medical History Medical History: Medical History Obesity, morbid, BMI 50 or higher History of gastroesophageal reflux (GERD) delivery delivered Celiac disease <Keiry Jeong APRN - Last Filed: 03/16/25 18:51> Surgical History Surgical History: Surgical History History of left knee surgery History of cholecystectomy H/O section X1 <Keiry Jeong APRN - Last Filed: 03/16/25 18:51> Family History Family History: Family History Father Alive and well Mother Diabetes mellitus <Keiry Jeong APRN - Last Filed: 03/16/25 18:51> Social History Social History: Social History Smoking packs per day: 0.5 Smoking cigarettes per day: 10.0 Years smoked: 20 Smoking pack-years: 10.00 Smoking status: Current every day smoker Tobacco type: cigarettes Second hand tobacco smoke exposure: No Alcohol intake: current Substance use: never Living arrangements: with family Additional occupation/education comments: Disable Gender identity (if verbalized by the patient): Female Sexual Orientation (if Verbalized by the Patient): Straight or Heterosexual <Keiry Jeong APRN - Last Filed: 03/16/25 18:51> Exam 2 Narrative: GENERAL: Well-appearing, well-nourished, and in no acute distress. HEAD: Normocephalic, atraumatic. EYES: Non injected, non icteric. Cholesterol deposit left eyelid. ENT: Nares clear, no rhinorrhea or epistaxis. Gross auditory acuity intact. NECK: Supple. No meningismus. CHEST: Speaking in full sentences. No respiratory distress. HEART: Regular rate and rhythm. . ABDOMEN: Morbidly obese but Soft, nondistended. Not peritoneal EXTREMITIES: Normal range of motion. No lower extremity edema. BACK: Patient able to perform side bends as well as flexion extension the lumbar spine. SKIN: Warm, dry. Right foot with erythema over the dorsum that blanches with touch and is warm though without induration. No rash/ecchymosis/vesicles overlying back or left buttock in area of pain. NEURO: No focal deficits. Alert and oriented. Answering questions. Following commands. Normal speech without aphasia or dysarthria. 5/5 strength with bilateral ankle dorsiflexion plantar flexion, bilateral knee flexion extension. Sensation intact to gross touch throughout. PSYCH: Normal mood and affect. <Esther Mesa MD - Last Filed: 03/18/25 08:09> Course Vital Signs Vital signs: Vital Signs Temperature 98.6 F 03/16/25 18:42 Pulse Rate 109 H 03/16/25 18:42 Respiratory Rate 18 03/16/25 18:42 Blood Pressure 181/155 H 03/16/25 18:42 Pulse Oximetry 97 03/16/25 18:42 Oxygen Delivery Room Air 03/16/25 18:42 Temperature 98.2 F 03/16/25 21:14 Pulse Rate 86 03/17/25 01:20 Respiratory Rate 18 03/17/25 01:20 Blood Pressure 147/88 H 03/17/25 01:20 Pulse Oximetry 97 03/17/25 01:20 Oxygen Delivery Room Air 03/16/25 18:42 <Keiry Jeong APRN - Last Filed: 03/16/25 18:51> Vital Signs Temperature 98.6 F 03/16/25 18:42 Pulse Rate 109 H 03/16/25 18:42 Respiratory Rate 18 03/16/25 18:42 Blood Pressure 181/155 H 03/16/25 18:42 Pulse Oximetry 97 03/16/25 18:42 Oxygen Delivery Room Air 03/16/25 18:42 Temperature 98.2 F 03/16/25 21:14 Pulse Rate 86 03/17/25 01:20 Respiratory Rate 18 03/17/25 01:20 Blood Pressure 147/88 H 03/17/25 01:20 Pulse Oximetry 97 03/17/25 01:20 Oxygen Delivery Room Air 03/16/25 18:42 <Esther Mesa MD - Last Filed: 03/18/25 08:09> MDM - Back Pain/Injury MDM Narrative Medical decision making narrative: Patient presents with back pain that radiates into her left buttock. Does not radiate into her thigh or to the knee or left ankle. She also has an erythematous and painful right foot. In the emergency department she is afebrile with vital signs notable for hypertension tachycardia. Back has no deformities, or signs of trauma. Curvature is within normal limits. Patient demonstrates flexion, extension, and side-bends of the lumbar spine. Sensation to the lower extremities is intact. Dorsi/plantar flexion is normal bilaterally. They do not have any other red flags for fracture, malignancy, infection (e.g. spinal epidural abscess), or aortic/vascular: Age, no trauma, no history of cancer, no fever, IV drug use, HIV, abdominal pain, syncope, or urinary symptoms. Urinalysis abnormal but patient is without symptoms so will defer treating explicitly (although will be receiving antibiotics for cellulitis as below which may provide coverage if there is growth on the culture in process). Mild leukocytosis Ketorolac was ordered from triage as was CT imaging. Patient's distribution of pain is not entirely consistent with sciatica or meralgia paresthetica but otherwise the left sided back pain seems benign. Right foot appears consistent with cellulitis. Discussed that there appears to be 2 processes going on and the role of aggressive multimodal pain management for the back pain as well as treating the infection for the right foot pain. Medications given in the ED and combination of Rx provided for both. Otherwise stable for DC. Area of infection to be outlined with a skin pen by RN. <Esther Mesa MD - Last Filed: 03/18/25 08:09> Differential Diagnosis Differential diagnosis: Likely lumbar radiculopathy, sciatica, strain of lumbar region and other (considered zoster) <Esther Mesa MD - Last Filed: 03/18/25 08:09> Lab Data Attestation: I reviewed the patient's lab results. <Esther Mesa MD - Last Filed: 03/18/25 08:09> Result diagrams: 03/16/25 19:45 03/16/25 19:45 <Keiry Jeong APRN - Last Filed: 03/16/25 18:51> Labs: Lab Results 03/16/25 03/16/25 Range/Units 19:45 23:03 WBC 13.9 H (4.5-10.0) K/mm3 RBC 5.34 (4.2-5.4) M/mm3 Hgb 14.4 (12.0-15.0) g/dL Hct 45.4 (37.0-47.0) % MCV 85.0 (80-100) fl MCH 27.0 (26-34) pg MCHC 31.7 L (32-36) g/dl RDW 16.0 H (11.5-14.5) % Plt Count 282 (150-375) k/mm3 MPV 10.2 (7.4-10.4) fl Immature Gran % (Auto) 1.2 H (0-0.5) % Neut % (Auto) 66.6 (45.5-73.1) % Lymph % (Auto) 23.0 (18.3-44.2) % [place] % (Auto) 6.6 (2.6-8.5) % Eos % (Auto) 1.6 (0-4.4) % Baso % (Auto) 1.0 (0.2-1.2) % Lymph # (Auto) 3.19 (0.9-3.2) K/mm3 [place] # (Auto) 0.9 H (0.1-0.6) K/mm3 Eos # (Auto) 0.2 (0-0.3) K/mm3 Baso # (Auto) 0.1 (0.0-0.1) K/mm3 Abs Immat Gran (auto) 0.16 H (0.00-0.031) K/mm3 Absolute Neuts (auto) 9.2 H (1.3-6.7) K/mm3 Absolute Nucleated RBC 0.000 (0.0-0.012) K/mm3 Nucleated RBC % 0.0 (0.0-0.2) % Sodium 139 (137-145) mmol/L Potassium 4.1 (3.4-5.0) mmol/L Chloride 106 (98-107) mmol/L Carbon Dioxide 24 (22-30) mmol/L Anion Gap 9 (4-12) mmol/L BUN 13 (7-17) mg/dL Creatinine 0.87 (0.7-1.0) mg/dL Estim Creat Clear Calc 88 ml/min Estimated GFR > 60 (59 - ) Glucose 104 (65-110) mg/dL Calcium 9.1 (8.4-10.2) mg/dL Total Bilirubin 0.6 (0.2-1.3) mg/dL AST 41 H (14-36) U/L ALT 26 (6-35) U/L Alkaline Phosphatase 116 (38-126) U/L Total Protein 8.0 (6.3-8.2) g/dL Albumin 4.2 (3.5-5.1) g/dL Urine Color Yellow (Yellow) Urine Appearance Cloudy H (Clear) Urine pH 5.5 (5.0-9.0) Ur Specific [place] 1.018 (1.001-1.035) Urine Protein Negative (Negative) mg/dL Urine Glucose (UA) Negative (Negative) mg/dL Urine Ketones Negative (Negative) mg/dL Ur Blood (Man) 2+ H (Negative) Urine Nitrate Negative (Negative) Urine Bilirubin Negative (Negative) Urine Urobilinogen 0.2 (<2.0) mg/dL Add Ur Microanalysis Reviewed Leukocyte Esterase Rfl 1+ H (Negative) CELSO/UL Urine RBC 6-10 H (0-2) /hpf Urine WBC 6-10 H (0-3) /hpf Ur Squamous Epith Cells Few (Few) /hpf Urine Bacteria Rare /hpf Urine Casts 0-2 Urine Yeast (Budding) Present H (None) /hpf <Keiry OlivaMauricio Jeong, RESPIRATORY CARE INSTRUCTOR - Last Filed: 03/16/25 18:51> Lab Results 03/16/25 03/16/25 Range/Units 19:45 23:03 WBC 13.9 H (4.5-10.0) K/mm3 RBC 5.34 (4.2-5.4) M/mm3 Hgb 14.4 (12.0-15.0) g/dL Hct 45.4 (37.0-47.0) % MCV 85.0 (80-100) fl MCH 27.0 (26-34) pg MCHC 31.7 L (32-36) g/dl RDW 16.0 H (11.5-14.5) % Plt Count 282 (150-375) k/mm3 MPV 10.2 (7.4-10.4) fl Immature Gran % (Auto) 1.2 H (0-0.5) % Neut % (Auto) 66.6 (45.5-73.1) % Lymph % (Auto) 23.0 (18.3-44.2) % [place]eman % (Auto) 6.6 (2.6-8.5) % Eos % (Auto) 1.6 (0-4.4) % Baso % (Auto) 1.0 (0.2-1.2) % Lymph # (Auto) 3.19 (0.9-3.2) K/mm3 [place] # (Auto) 0.9 H (0.1-0.6) K/mm3 Eos # (Auto) 0.2 (0-0.3) K/mm3 Baso # (Auto) 0.1 (0.0-0.1) K/mm3 Abs Immat Gran (auto) 0.16 H (0.00-0.031) K/mm3 Absolute Neuts (auto) 9.2 H (1.3-6.7) K/mm3 Absolute Nucleated RBC 0.000 (0.0-0.012) K/mm3 Nucleated RBC % 0.0 (0.0-0.2) % Sodium 139 (137-145) mmol/L Potassium 4.1 (3.4-5.0) mmol/L Chloride 106 (98-107) mmol/L Carbon Dioxide 24 (22-30) mmol/L Anion Gap 9 (4-12) mmol/L BUN 13 (7-17) mg/dL Creatinine 0.87 (0.7-1.0) mg/dL Estim Creat Clear Calc 88 ml/min Estimated GFR > 60 (59 - ) Glucose 104 (65-110) mg/dL Calcium 9.1 (8.4-10.2) mg/dL Total Bilirubin 0.6 (0.2-1.3) mg/dL AST 41 H (14-36) U/L ALT 26 (6-35) U/L Alkaline Phosphatase 116 (38-126) U/L Total Protein 8.0 (6.3-8.2) g/dL Albumin 4.2 (3.5-5.1) g/dL Urine Color Yellow (Yellow) Urine Appearance Cloudy H (Clear) Urine pH 5.5 (5.0-9.0) Ur Specific [place] 1.018 (1.001-1.035) Urine Protein Negative (Negative) mg/dL Urine Glucose (UA) Negative (Negative) mg/dL Urine Ketones Negative (Negative) mg/dL Ur Blood (Man) 2+ H (Negative) Urine Nitrate Negative (Negative) Urine Bilirubin Negative (Negative) Urine Urobilinogen 0.2 (<2.0) mg/dL Add Ur Microanalysis Reviewed Leukocyte Esterase Rfl 1+ H (Negative) CELSO/UL Urine RBC 6-10 H (0-2) /hpf Urine WBC 6-10 H (0-3) /hpf Ur Squamous Epith Cells Few (Few) /hpf Urine Bacteria Rare /hpf Urine Casts 0-2 Urine Yeast (Budding) Present H (None) /hpf <Esther Mesa MD - Last Filed: 03/18/25 08:09> Imaging Data Radiologist's impression: IMPRESSION: 1. 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 No acute osseous abnormality. IMPRESSION: 1. 15 degrees lumbar scoliosis with mild lumbar and moderate lower thoracic spondylosis. No acute osseous abnormality. <Esther Mesa MD - Last Filed: 03/18/25 08:09> Discharge Plan Discharge Clinical Impression: Back pain, Abnormal urinalysis, Lumbar scoliosis, Spondylosis of thoracic spine, Lumbar spondylosis, Cellulitis of foot, right <Keiry Jeong APRN - Last Filed: 03/16/25 18:51> Patient Disposition: Home <Keiry Jeong APRN - Last Filed: 03/16/25 18:51> Condition: Stable <Keiry Jeong APRN - Last Filed: 03/16/25 18:51> Instructions: Antibiotic Form, Cellulitis (ED), Back Pain (ED), Lower Back Exercises (ED) <Keiry Jeong APRN - Last Filed: 03/16/25 18:51> Additional Instructions: As we discussed, the goal of multimodal pain regimen is to reduce your pain to a more tolerable levels to allow you to balance some rest with maintaining staying active and performing stretching/strengthening exercises. Acetaminophen/Tylenol (maximum 4000 mg per day) is safe to take with NSAIDs (ibuprofen/Motrin) for pain relief. In addition there are topical approaches and a muscle relaxer, the latter can help at night. Follow up with your PCP as, if not improving in 5-7 days may require alternative imaging/pain strategies, physical therapy, etc. For the skin infection on a cellulitis take the entire course of antibiotic. You received your 1st dose in the emergency department. Return to the emergency department with any new or worsening symptoms. Return to the ER if you have increased pain in your back, you develop lower extremity weakness/numbness/paralysis, you have numbness or tingling in your private parts, or you are unable to control your ability to urinate/stool. <Keiry Jeong APRN - Last Filed: 03/16/25 18:51> Patient Language: Guinean <Keiry Jeong APRN - Last Filed: 03/16/25 18:51> Prescriptions: New methocarbamol 750 mg tablet 1,500 mg PO HS Qty: 14 0RF acetaminophen 500 mg capsule 1,000 mg PO Q6H PRN (Reason: pain) Qty: 30 0RF lidocaine 4 % adhesive patch,medicated 1 patch topical DAILY PRN (Reason: pain) Qty: 10 0RF ibuprofen 600 mg tablet 600 mg PO TID PRN (Reason: pain) Qty: 30 0RF cephalexin 500 mg tablet 500 mg PO Q8H 5 Days Qty: 15 0RF No Action Prilosec OTC cetirizine [Zyrtec] 10 mg tablet 10 mg PO DAILY PRN (Reason: allergy symptoms) Qty: 30 0RF <Keiry Jeong APRN - Last Filed: 03/16/25 18:51> Follow-up/Referrals: PHYSICIAN,AIRCRAFT DETAIL DRAFTSPERSON [Primary Care Provider] - <Keiry Jeong APRN - Last Filed: 03/16/25 18:51> Stand Alone Forms: Work/School Release IP <Keiry Jeong APRN - Last Filed: 03/16/25 18:51> Time of Disposition: 00:59 <Keiry Jeong APRN - Last Filed: 03/16/25 18:51> 00:59 <Esther Mesa MD - Last Filed: 03/18/25 08:09>
[2025-03-16 19:59] LABS: Hematocrit 45.4 % (37.0-47.0); Hemoglobin 14.4 g/dL (12.0-15.0); Immature Granulocyte Percent A 1.2 % (0-0.5); Lymphocytes Absolute Auto 3.19 K/mm3 (0.9-3.2); Mean Corpuscular HGB Conc 31.7 g/dl (32-36); Mean Corpuscular Hemoglobin 27.0 pg (26-34); Mean Corpuscular Volume 85.0 fl (80-100); Nucleated Red Blood Cells Absolute Auto 0.000 K/mm3 (0.0-0.012); Nucleated Red Blood Cells Perc 0.0 % (0.0-0.2); Platelet Count Result 282 k/mm3 (150-375); Red Blood Count 5.34 M/mm3 (4.2-5.4); White Blood Count 13.9 K/mm3 (4.5-10.0)
[2025-03-16 20:38] LABS: Alanine Aminotransferase 26 U/L (6-35); Albumin Level 4.2 g/dL (3.5-5.1); Alkaline Phosphatase 116 U/L (38-126); Anion Gap 9 mmol/L (4-12); Aspartate Amino Transferase 41 U/L (14-36); Bilirubin,Total 0.6 mg/dL (0.2-1.3); Blood Urea Nitrogen 13 mg/dL (7-17); Calcium 9.1 mg/dL (8.4-10.2); Carbon Dioxide 24 mmol/L (22-30); Chloride 106 mmol/L (98-107); Estimated CRCL calculation 88 ml/min; Estimated Glomerular Filt Rate > 60; Glucose 104 mg/dL (65-110); Potassium 4.1 mmol/L (3.4-5.0); Sodium 139 mmol/L (137-145); Total Protein 8.0 g/dL (6.3-8.2)
[2025-03-16 21:14] VITALS: BP 148/90; PULSE 96; TEMP 36.8; O2SAT 95
[2025-03-16] MEDS: KETOROLAC (*BKC) 60 MG/2 ML VIAL IM (23:07)
[2025-03-16 23:25] LABS: Add Urine Microscopic? YES; Appearance Urine Cloudy (Clear); Budding Yeast Urine Present /hpf; Glucose Urine UA Negative (Negative); Leukocyte Esterase Ur 1+ LEU/UL (Negative); Need Manual Microscopic Reviewed; Nitrate Urine Negative (Negative); Non Pathogenic Casts 0-2; Specific Grav Ur 1.018 (1.001-1.035)
--- OUTSIDE RECORDS SUMMARY | 2025-03-16 23:40 | XMS_ITS | Clinical Summary ---
Author Organization [facility] ([facility] [place]) Address [address] [place] [address] Care Team Providers Care Disability Hearing Officer Name Role Phone Timmy Parkinson COLLISION WORKER-MOTOR ELECTRICIAN Primary Care Pro vider Source Comments [facility] ([facility] [place]),non-owned Affiliates and Associated Physician Practices is amultiple site organization consisting of ambulatory clinics and hospital sitesin [place], [place], [place] and [place]. This disclosure is being madepursuant to the Care Everywhere program and may not contain all information available regarding this patient. Last updated 18.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
--- OUTSIDE RECORDS SUMMARY | 2025-03-16 23:40 | XMS_ITS | Encounter Summary ---
Author Organization [facility] Address [address] [place] [address] Care Team Providers Care Dial Lathe Operator Name Role Phone Timmy Parkinson GUN MECHANIC-INTAKE COORDINATOR Primary Care Pro vider Reason for Visit * Reason Onset Date Comments Refill Request 02/15/2019 Encounter Details Date Type Department Care Team (Late st Contact Info) Description 02/15/[address] 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 Ines Chacon Senior Patient Product Management Specialist Department of Dermatology, Mohs Surgery and Cutaneous Oncology [facility] Dermatology [facility] documented in this encounter Plan of Treatment Not on file documented as of this encounter Visit Diagnoses Diagnosis Dermatitis herpetiformis documented in this encounter Care Teams Dial Lathe Operator Relationship Specialty Start Date End Date Timmy Parkinson APRN-GREG [address] [place] [phone] PCP - General 07/13/17 documented as of this encounter
[2025-03-17 00:02] VITALS: BP 143/87; PULSE 89; RESP 16; O2SAT 96
[2025-03-17] MEDS: HYDROcodone/acetaminophen (*CRX) 5-325 MG TABLET 1 TAB PO (01:06)
[2025-03-17] MEDS: diazePAM (*CRX) 5 MG TABLET PO (01:06)
[2025-03-17] MEDS: CEPHALEXIN 500 MG CAPSULE PO (01:06)
[2025-03-17 01:19] VITALS: BP 147/88; PULSE 86; RESP 18; O2SAT 97
[2025-03-17 01:20] VITALS: BP 147/88; PULSE 86; RESP 18; O2SAT 97
== END 2025-03-17 01:23 | disposition home or self-care (01) ==
PROVIDERS: Registered Nurse; Emergency Provider Student in an Organized Health Care Education/Training Program
DX: M47.816 Spondylosis without myelopathy or radiculopathy, lumbar region (principal); M47.814 Spondylosis without myelopathy or radiculopathy, thoracic region; M41.9 Scoliosis, unspecified; L03.115 Cellulitis of right lower limb; R82.998 Other abnormal findings in urine; E66.01 Morbid (severe) obesity due to excess calories; Z68.43 Body mass index [BMI] 50.0-59.9, adult; K90.0 Celiac disease; F17.210 Nicotine dependence, cigarettes, uncomplicated; Z96.652 Presence of left artificial knee joint; Z90.49 Acquired absence of other specified parts of digestive tract
CPT/HCPCS: 36415; 72131; 80053; 81001; 85025; 87086; 96372; 99284; A9270; J1885

== ENCOUNTER 2025-04-06 15:53 | Emergency (ER) | payer OTHER, SELFPAY ==
[2025-04-06 16:05] VITALS: BP 140/97; PULSE 99; RESP 20; TEMP 37.3; O2SAT 97
--- NOTE | 2025-04-06 16:06 | ED_ITS ---
HPI - Extremity Problem General Chief complaint: Extremity Injury, Lower Stated complaint: Left Foot Toe Pain Time Seen by Provider: 04/06/25 16:22 Source: patient and RN notes reviewed Mode of arrival: ambulatory Limitations: dementia History of Present Illness HPI Narrative: 49-year-old female presents with concern for 3-4 day history of left toe pain. She reports she had cellulitis in the right toe a few weeks ago and was treated effectively with an antibiotic. Reports these symptoms are similar to the symptoms in the right foot. She denies general malaise, fever, aches, chills, sweats. She denies injury or trauma. Denies opening open skin MD Complaint: extremity pain Related Data Home Medications ?Medication ?Instructions ?Recorded ?Confirmed ?Last Taken ?Type Prilosec OTC 05/08/21 Unknown History Allergies Allergy/AdvReac Type Severity Reaction Status Date / Time sulfamethoxazole Allergy Severe Anaphylactic Verified 04/06/25 16:13 Shock trimethoprim Allergy Severe Anaphylactic Verified 04/06/25 16:13 Shock Review of Systems Review of Systems: CONSTITUTIONAL: Denies malaise, chills, sweats, or fever. EYES: Denies redness, or discharge. ENT: Denies rhinorrhea, congestion, swollen lips, swollen tongue CARDIOVASCULAR: Denies chest pain, palpitations, or edema. RESPIRATORY: Denies cough or dyspnea. GASTROINTESTINAL: Denies abdominal pain, nausea, vomiting SKIN: Reports redness, swelling, pain to the 1st digit of the left foot. Denies purulent drainage, vesicles, bullae, numbness, pain beyond proportion MUSCULOSKELETAL: Denies joint pain or myalgia. NEUROLOGIC: Denies headache. All systems reviewed & are unremarkable except as noted in HPI and below PMFSH Past Medical History Medical History Obesity, morbid, BMI 50 or higher History of gastroesophageal reflux (GERD) delivery delivered Celiac disease Surgical History Surgical History History of left knee surgery History of cholecystectomy H/O section X1 Family History Family History Father Alive and well Mother Diabetes mellitus Social History Social History Smoking packs per day: 0.5 Smoking cigarettes per day: 10.0 Years smoked: 20 Smoking pack-years: 10.00 Smoking status: Current every day smoker Tobacco type: cigarettes Second hand tobacco smoke exposure: No Alcohol intake: current Substance use: never Living arrangements: with family Additional occupation/education comments: Disable Gender identity (if verbalized by the patient): Female Sexual Orientation (if Verbalized by the Patient): Straight or Heterosexual Comments At time of signature, agree with nursing past medical, surgical, social and family history. There is no relevant family history pertinent to the presenting complaint Exam Narrative: GENERAL: Well-appearing, well-nourished, and in no acute distress. HEAD: Normocephalic, atraumatic. EYES: PERRLA, conjunctivae clear ENT: Mucous membranes moist. NECK: Supple. No lymphadenopathy CHEST: Clear to auscultation. No respiratory distress. HEART: Regular rate and rhythm. SKIN: Warm, dry. Mild Erythema, induration, tenderness, warmth with sharp margins noted to the distal 1st digit of the left foot. No vesicles, bullae, necrosis, ecchymosis, crepitus noted. NEURO: Alert and oriented x3. PSYCH: Normal mood and affect Course Course Emergency Course: Patient is aware of diagnosis, understands and agrees to treatment plan. Anticipatory guidance given. Patient agrees to follow-up as directed and is aware of reasons to seek care at the emergency department. Portions of this record may have been created with voice recognition software Level of Care: Express Care Visit Vital Signs Vital signs: Vital Signs Temperature 99.1 F 04/06/25 16:05 Pulse Rate 99 04/06/25 16:05 Respiratory Rate 20 04/06/25 16:05 Blood Pressure 140/97 H 04/06/25 16:05 Pulse Oximetry 97 04/06/25 16:05 Oxygen Delivery Room Air 04/06/25 16:05 Temperature 99.1 F 04/06/25 16:05 Pulse Rate 99 04/06/25 16:05 Respiratory Rate 20 04/06/25 16:05 Blood Pressure 140/97 H 04/06/25 16:05 Pulse Oximetry 97 04/06/25 16:05 Oxygen Delivery Room Air 04/06/25 16:05 Reviewed. Critical Care Time Critical Care Time Critical Care Time: No Discharge Plan Discharge Clinical Impression: Cellulitis Patient Disposition: Home Condition: Stable Instructions: Antibiotic Form, Cellulitis (ED) Additional Instructions: Please follow up with your Primary Care Doctor within 48-72 hours - call for an appointment. Rest and elevate affected area; apply moist heat 3-4 times daily for 10-15 minutes. Take Motrin 600mg every 8 hours with food for pain. Please take Antibiotics as directed. If you experience any worsening redness, swelling, streaking (red lines), fever or chills please go to the ER Patient Language: Luxembourgish Prescriptions: New penicillin V potassium 500 mg tablet 500 mg PO Q12H 10 Days Qty: 20 0RF No Action Prilosec OTC Follow-up/Referrals: Iggy,RC Warner [Primary Care Provider] - Time of Disposition: 16:21
== END 2025-04-06 16:30 | disposition home or self-care (01) ==
PROVIDERS: Emergency Provider Nurse Practitioner; PCP Registered Nurse
DX: L03.032 Cellulitis of left toe (principal); K90.0 Celiac disease; K21.9 Gastro-esophageal reflux disease without esophagitis; E66.01 Morbid (severe) obesity due to excess calories; Z68.43 Body mass index [BMI] 50.0-59.9, adult; F17.210 Nicotine dependence, cigarettes, uncomplicated
CPT/HCPCS: 99213; G0463